=== PATIENT | female | born 1990 | race Caucasian/White ===

== ENCOUNTER 2018-10-01 22:07 | Emergency (ER) | payer SELFPAY ==
[2018-10-02] MEDS ORDERED: DEXAMETHASONE SOD PHOS INJ 10 MG/1 ML VIAL IM ONE (00:05)
[2018-10-02] MEDS ORDERED: DOXYCYCLINE HYCLATE 100 MG TABLET PO ONE (00:06)
--- NOTE | 2018-10-02 00:13 | ER Document Report ---
ED Skin Rash/Insect Bite/Abscs - General Chief Complaint: Skin Sore(s) Stated Complaint: POSSIBLE CELLULITIS Time Seen by Provider: 10/01/18 23:58 Primary Care Provider: BENITA KEVIN [Primary Care Provider] - Follow up as needed Mode of Arrival: Ambulatory Information source: Patient Notes: Patient is a 20-year-old female comes emergency room with a complaint of having cellulitis on her left elbow area. Patient states that she did go side about a week ago when she got bit by some mosquitoes. She went saw her primary doctor yesterday and her primary doctor looked at the area under her left elbow and told her it was nothing. Since then it is developed into an area of moderate erythema with severe pruritus. And is oozing some. She also has an area on her abdomen that is also where she is excoriated the small area because of the pruritus. And she has an area on her right lower extremity. She currently has multiple areas on her lower extremities also appear to have some type of a insect bite like a "mosquito bite. Patient states that all these areas are very itchy. She states she has a history of cellulitis a year ago and almost hospitalized her because it was not treated Fastenal. TRAVEL OUTSIDE OF THE [place] IN LAST 30 DAYS: No - HPI Patient complains to provider of: Skin rash/lesion, Tender/swollen area, Insect bite Onset: Last week Onset/Duration: Gradual, Persistent, Worse Quality of pain: Achy, Burning Severity: Moderate Pain Level: 3 Skin Character: Drainage, Erythema, Papules, Rash, Warm. No: Abscess Skin Temperature: Warm Quality of rash: Itchy Identify cause: No Exacerbated by: Denies Relieved by: Denies Similar symptoms previously: Yes Recently seen / treated by doctor: Yes - Related Data Allergies/Adverse Reactions: Sulfa (Sulfonamide Antibiotics) Allergy (Verified 10/06/11 13:29) Past Medical History - General Information source: Patient - Social History Smoking Status: Never Smoker Cigarette use (# per day): No Chew tobacco use (# tins/day): No Smoking Education Provided: No Frequency of alcohol use: None Drug Abuse: None Lives with: Family Family History: Reviewed & Not Pertinent - Immunizations Hx Diphtheria, Pertussis, Tetanus Vaccination: Yes Review of Systems - Review of Systems Constitutional: No symptoms reported EENT: No symptoms reported Cardiovascular: No symptoms reported Respiratory: No symptoms reported Gastrointestinal: No symptoms reported Genitourinary: No symptoms reported Female Genitourinary: No symptoms reported Musculoskeletal: No symptoms reported Skin: See HPI, Rash Hematologic/Lymphatic: No symptoms reported Neurological/Psychological: No symptoms reported -: Yes All other systems reviewed and negative Physical Exam - Vital signs Vitals: Temp Pulse Resp BP Pulse Ox 98.7 F 77 18 134/79 H 100 10/01/18 22:24 10/01/18 22:24 10/01/18 22:24 10/01/18 22:24 10/01/18 22:24 Interpretation: Hypertensive - Notes Notes: PHYSICAL EXAMINATION: GENERAL: well-nourished and in no acute distress. But uncomfortable appearing. HEAD: Atraumatic, normocephalic. LUNGS: Breath sounds clear to auscultation bilaterally and equal. No wheezes rales or rhonchi. HEART: Regular rate and rhythm without murmurs ABDOMEN: Soft, nontender, nondistended abdomen. No guarding, no rebound. No masses appreciated. Female : deferred Musculoskeletal: Normal range of motion, no pitting or edema. No cyanosis. NEUROLOGICAL: Normal speech, normal gait. Normal sensory, motor exams PSYCH: Normal mood, normal affect. SKIN: Examination patient's her primary concern is her left elbow area. There appears to be about a 4 cm erythematous area that in the center that is approximately a 1-1/2 cm in circumference area of multiple papules that are pustules with clear fluid and on. It appears almost like a poison tamera presentation. Surrounding it is the base of erythema and surrounding that is areas of excoriation where patient has scratched at the area. She has an area also noted on the right abdominal area because of her body habitus cyst in size it is on the right side of the abdomen. It is approximately 5 cm to 6 cm long and about 3 to 4 cm wide it is different stages of excoriation and abrasions secondary to the nails. Is got a base of erythema that is noted in appears to be turning into a cellulitis as well. The lower extremities have multiple what appear to be bug bites or stings on them that also she is excoriated and it starting in various forms and shapes of a early cellulitis in multiple locations on the lower extremities. All of them are quite small however. Course - Re-evaluation Re-evalutation: 10/02/18 00:[address] patient on doxycycline and given her dose here along with hitting her with Decadron in order to kick off a decline in her a response of what ever the dermatitis is. I have informed patient that if she thinks she is scratching herself at night she needs to place gloves on her hands or socks on her hands. Informed her to return to ER if she has any concerns or problems. - Vital Signs Vital signs: Temp Pulse Resp BP Pulse Ox 98.7 F 77 18 134/79 H 100 10/01/18 22:24 10/01/18 22:24 10/01/18 22:24 10/01/18 22:24 10/01/18 22:24 Discharge - Discharge Clinical Impression: Cellulitis of left elbow, Abdominal wall cellulitis Condition: Stable Disposition: HOME, SELF-CARE Instructions: Cellulitis ([facility]), MRSA Cellulitis ([facility]), Contact Dermatitis ([facility]), Atopic Dermatitis (Eczema) ([facility]) Additional Instructions: Home and rest. Take all the antibiotics as prescribed. Wrap the area on the elbow as we have also discussed. Highly recommend that you figure out what may have caused the start of this. May be a talk to your primary doctor after taking some of the antibiotics we can see what area looks like. Also you may take 50 mg of Benadryl [id number] this will help alleviate your itching as well. Please note this can make you sleepy so do not take the medication and drive. Prescriptions: Doxycycline Hyclate 100 mg PO BID 10 Days #20 capsule Forms: Elevated Blood Pressure Referrals: LOCALMD,NO [Primary Care Provider] - Follow up as needed
[2018-10-02 00:46] VITALS: BP 131/75
== END 2018-10-02 00:45 | disposition home or self-care (01) ==
LOC: ER 22:07
DX: L03.113 Cellulitis of right upper limb (principal); L03.311 Cellulitis of abdominal wall; Z88.2 Allergy status to sulfonamides
CPT/HCPCS: 99281; 96372; J1100

== ENCOUNTER 2020-02-05 16:58 | Emergency (ER) | payer OTHER ==
[2020-02-05 17:04] VITALS: BP 145/84
--- NOTE | 2020-02-05 17:08 | ER Document Report ---
HPI - HPI Patient complains to provider of: Ant bites Time Seen by Provider: 02/05/20 17:02 Onset: Yesterday Onset/Duration: Gradual Quality of pain: Burning Pain Level: 3 Context: Patient states she was bit by ants last night. Patient states she woke up today and noticed that she had some redness surrounding the bites to her right great toe. No fever. Patient is presently taking Keflex already to treat a cellulitis. Patient states she only has a few more days left. Associated Symptoms: denies: Fever, Nausea Exacerbated by: Denies Relieved by: Denies Similar symptoms previously: Yes Recently seen / treated by doctor: Yes - ROS ROS below otherwise negative: Yes Systems Reviewed and Negative: Yes All other systems reviewed and negative - CONSTITUTIONAL Constitutional: DENIES: Fever, Chills - REPRODUCTIVE Reproductive: DENIES: : - MUSCULOSKELETAL Musculoskeletal: REPORTS: Extremity pain, Swelling - DERM Skin Color: Erythema Notes: Ant bites Past Medical History - General Information source: Patient - Social History Smoking Status: Never Smoker Frequency of alcohol use: None Drug Abuse: None Occupation: None Lives with: Family Family History: Reviewed & Not Pertinent - Medical History Medical History: Negative Renal/ Medical History: Denies: Hx Peritoneal Dialysis Surgical Hx: Negative - Immunizations Hx Diphtheria, Pertussis, Tetanus Vaccination: Yes Vertical Provider Document - CONSTITUTIONAL Agree With Documented VS: Yes Exam Limitations: No Limitations General Appearance: WD/WN, No Apparent Distress - INFECTION CONTROL TRAVEL OUTSIDE OF THE [place] IN LAST 30 DAYS: No - HEENT HEENT: Atraumatic, Normocephalic - NECK Neck: Normal Inspection, Supple - RESPIRATORY Respiratory: Breath Sounds Normal, No Respiratory Distress - CARDIOVASCULAR Cardiovascular: Regular Rate, Regular Rhythm - MUSCULOSKELETAL/EXTREMETIES Musculoskeletal/Extremeties: MAEW, Edema - 1+ edema to right foot - NEURO Level of Consciousness: Awake, Alert, Appropriate Motor/Sensory: No Motor Deficit - DERM Integumentary: Warm, Dry Notes: Scattered papular, pustular lesions to dorsal aspect of right foot, lesion to right great toe with surrounding erythema to skin Course - Re-evaluation Re-evalutation: 02/05/20 17:11 Patient with insect bites consistent with history of ant bite, mild erythema surrounding ant bite to the right great toe, discussed with patient likely reactive inflammatory response although patient is concerned about developing cellulitis, will place patient on a few additional days worth of the cephalexin. No concern for septic arthritis. - Vital Signs Vital signs: Temp Pulse Resp BP Pulse Ox 98.4 F 93 20 145/84 H 97 02/05/20 17:02 02/05/20 17:02 02/05/20 17:02 02/05/20 17:02 02/05/20 17:02 Discharge - Discharge Clinical Impression: Fire ant bite Qualifiers: Encounter type: initial encounter Injury intent: undetermined intent Qualified Code(s): T63.424A - Toxic effect of venom of ants, undetermined, initial encounter Cellulitis Qualifiers: Site of cellulitis: extremity Site of cellulitis of extremity: lower extremity Laterality: right Qualified Code(s): L03.115 - Cellulitis of right lower limb Condition: Stable Disposition: HOME, SELF-CARE Instructions: Cephalexin ([facility]), Swollen Insect Bite or Sting ([facility]) Additional Instructions: Return immediately for any new or worsening symptoms Followup with your primary care provider, call tomorrow to make a followup appointment Prescriptions: Cephalexin Monohydrate [Keflex 500 mg Capsule] 500 mg PO Q6H 3 Days #12 capsule Referrals: LOCALMD,NO [Primary Care Provider] - Follow up as needed
== END 2020-02-05 17:16 | disposition home or self-care (01) ==
LOC: ER 16:58
DX: T63.421A Toxic effect of venom of ants, accidental (unintentional), initial encounter (principal); L03.115 Cellulitis of right lower limb; X58.XXXA Exposure to other specified factors, initial encounter
CPT/HCPCS: 99283

== ENCOUNTER 2020-03-30 15:39 | Emergency (ER) | payer OTHER ==
--- NOTE | 2020-03-30 16:28 | ER Document Report ---
ED Medical Screen (RME) - General Chief Complaint: Flank Pain Stated Complaint: PAINFUL URINATION,LEFT FLANK PAIN Time Seen by Provider: 03/30/20 16:23 Primary Care Provider: YG ANDERSON IDC [Primary Care Provider] - Follow up as needed Mode of Arrival: Ambulatory Information source: Patient Notes: 29-year-old female presents to ED for complaint of left flank pain pelvic pain. She states she has been having this since March 08 she has been to the medical over at [facility] and they have given her different medications and had her do urines 3 different times and the pain is just getting worse and not getting any better. She states that now she has pain up into her left flank area. She denies any fevers nausea or vomiting. We will get clean and dirty urine blood test and a wet mount and she will be seen by another provider. Patient does have tenderness to her pelvic and her left flank. We will also get a transvaginal ultrasound I have greeted and performed a rapid initial assessment of this patient. A comprehensive ED assessment and evaluation of the patient, analysis of test results and completion of medical decision making process will be conducted by an additional ED providers. TRAVEL OUTSIDE OF THE [place] IN LAST 30 DAYS: No - Related Data Allergies/Adverse Reactions: Sulfa (Sulfonamide Antibiotics) Allergy (Verified 10/06/11 13:29) Past Medical History Renal/ Medical History: Denies: Hx Peritoneal Dialysis - Immunizations Hx Diphtheria, Pertussis, Tetanus Vaccination: Yes Physical Exam - Vital signs Vitals: Temp Pulse Resp BP Pulse Ox 98.2 F 88 16 151/90 H 100 03/30/20 15:47 03/30/20 15:47 03/30/20 15:47 03/30/20 15:47 03/30/20 15:47 Course - Vital Signs Vital signs: Temp Pulse Resp BP Pulse Ox 98.2 F 88 16 151/90 H 100 03/30/20 15:47 03/30/20 15:47 03/30/20 15:47 03/30/20 15:47 03/30/20 15:47 Doctor's Discharge - Discharge Referrals: YG ANDERSON IDC [Primary Care Provider] - Follow up as needed
--- NOTE | 2020-03-30 17:27 | RADIOLOGY REPORT (SQ) ---
EXAM DESCRIPTION: U/S NON-OB PELVIS TV W/O DOP IMAGES COMPLETED DATE/TIME: 03/30/2020 5:14 pm REASON FOR STUDY: Pelvic pain COMPARISON: None. TECHNIQUE: Dynamic and static grayscale images acquired of the pelvis via transvaginal approach and recorded on PACS. Additional selected color Doppler and spectral images recorded. LIMITATIONS: None. FINDINGS: UTERUS: Contour normal. No mass. ENDOMETRIAL STRIPE: No focal or generalized thickening. No masses. CERVIX: 2.4 cm. No nabothian cysts. RIGHT OVARY AND DOPPLER: Normal size. No worrisome masses. Normal arterial vascular flow without evid ence for torsion. LEFT OVARY AND DOPPLER: Normal size. No worrisome masses. Normal arterial vascular flow without evide nce for torsion. FREE FLUID: None noted. OTHER: No other significant finding. MEASUREMENTS: UTERUS: 7.4 x 5.1 x 4.3 cm. ENDOMETRIAL STRIPE: 6 mm. RIGHT OVARY: 3.2 x 1.7 x 2.2 cm. LEFT OVARY: 2.6 x 2 x 1.4 cm. IMPRESSION: NORMAL TRANSVAGINAL PELVIC ULTRASOUND. TECHNICAL DOCUMENTATION: JOB ID: [id number] [employer]- All Rights Reserved Rev-10/09 Reading location - IP/workstation name: [email or web address]
[2020-03-30 17:32] LABS: ABSOLUTE LYMPHOCYTES (AUTO) 2.2 10^3/uL (0.5-4.7); ABSOLUTE MONOCYTES (AUTO) 0.6 10^3/uL (0.1-1.4); ABSOLUTE NEUT (AUTO) 8.2 10^3/uL (1.7-8.2); BASOPHILS % (AUTO) 0.1 % (0-2); EOSINOPHILS % (AUTO) 0.4 % (0-6); HEMATOCRIT 39.3 % (36.0-47.0); HEMOGLOBIN 13.5 g/dL (12.0-15.5); LYMPHOCYTES % (AUTO) 19.9 % (13-45); MEAN CORPUSCULAR HEMOGLOBIN 29.6 pg (27.0-33.4); MEAN CORPUSCULAR HGB CONC 34.3 g/dL (32.0-36.0); MEAN CORPUSCULAR VOLUME 86 fl (80-97); MONOCYTES % (AUTO) 5.4 % (3-13); PLATELET COUNT 237 10^3/uL (150-450); RED BLOOD COUNT 4.56 10^6/uL (3.72-5.28); RED CELL DISTRIBUTION WIDTH 13.5 % (11.5-14.0); SEGMENTED NEUTROPHILS % (AUTO) 74.2 % (42-78); TOTAL CELLS COUNTED % (AUTO) 100 %
[2020-03-30 17:38] LABS: APPEARANCE,URINE CLEAR; BILIRUBIN,URINE NEGATIVE (NEGATIVE); COLOR,URINE STRAW; GLUCOSE, URINE NEGATIVE (NEGATIVE); KETONES,URINE NEGATIVE (NEGATIVE); LEUKOCYTE ESTERASE,URINE NEGATIVE (NEGATIVE); NITRITE,URINE NEGATIVE (NEGATIVE); PROTEIN,URINE NEGATIVE (NEGATIVE); UROBILINOGEN,URINE NEGATIVE mg/dL (<2.0)
[2020-03-30 18:02] LABS: ALBUMIN 4.7 g/dL (3.5-5.0); ALKALINE PHOSPHATASE 95 U/L (38-126); ANION GAP 11 (5-19); ASPARTATE AMINO TRANSFERASE 31 U/L (14-36); BILIRUBIN,TOTAL 0.3 mg/dL (0.2-1.3); BLOOD UREA NITROGEN 15 mg/dL (7-20); CALCIUM 9.7 mg/dL (8.4-10.2); CARBON DIOXIDE 27 mmol/L (22-30); CHLORIDE 99 mmol/L (98-107); GLUCOSE 93 mg/dL (75-110); POTASSIUM 4.1 mmol/L (3.6-5.0); TOTAL PROTEIN 7.6 g/dL (6.3-8.2)
[2020-03-30 19:59] LABS: BACTERIA (WET MOUNT) 3+ BACTERIA SEEN; RBCS (WET MOUNT) 4+ RBCS SEEN; T.VAGINALIS (WET MOUNT) NO TRICHOMONAS SEEN; WBCS (WET MOUNT) 1+ WBCS SEEN; YEAST (WET MOUNT) NO YEAST SEEN
[2020-03-30 20:08] LABS: CHLAM PCR NOT DETECTED (NOT DETECT)
[2020-03-30 20:26] VITALS: BP 137/78
--- NOTE | 2020-03-30 21:00 | RADIOLOGY REPORT (SQ) ---
EXAM DESCRIPTION: CT ABDOMEN PELVIS WITHOUT IV CONTRAST COMPLETED DATE/TME: 03/30/2020 20:19 CLINICAL HISTORY: 29 years, Female, . Left flank pain. COMPARISON: Pelvic ultrasound from today. TECHNIQUE: Axial images without IV or oral contrast. Sagittal coronal reconstruction. Images stored on PACS. All CT scanners at this facility use dose modulation, iterative reconstruction, and/or weight based dosing when appropriate to reduce radiation dose to as low as reasonably achievable (ALARA). FINDINGS: Lung bases are unremarkable. Small hiatal hernia. 15 x 12 mm cyst in the dome of the liver. Spleen, pancreas, biliary system, adrenal glands, kidneys, aorta and para-aortic regions are unremarkable. Small umbilical hernia with herniation of fat. Bowel loops and peritoneal cavity are unremarkable. CT of the pelvis demonstrates a retroverted retroflexed uterus. Adnexa not enlarged. No adenopathy or free fluid. Urinary bladder unremarkable. Distal colon is unremarkable. IMPRESSION: 1. Small umbilical hernia with herniation of fat. Small hiatal hernia. 2. Retroverted retroflexed uterus. 3. No acute findings in the abdomen and pelvis.
--- NOTE | 2020-03-30 21:14 | ER Document Report ---
ED General - General Chief Complaint: Flank Pain Stated Complaint: PAINFUL URINATION,LEFT FLANK PAIN Time Seen by Provider: 03/30/20 16:23 Primary Care Provider: YG ANDERSON IDC [Primary Care Provider] - Follow up in 3-5 days ROSSANA MARIA MD [NO LOCAL MD] - Follow up in 1 week Mode of Arrival: Ambulatory TRAVEL OUTSIDE OF THE [place] IN LAST 30 DAYS: No - HPI Notes: 29-year-old female to the emergency department with complaints of about 1 month of sensation that she has to urinate all the time. She states that her primary care doctor at the [facility] has put her on 4 different antibiotics. She has most recently been on Keflex with Pyridium. She states that she continues to feel the same sensation of feeling like she always needs to go the bathroom. She states that when she urinates she does not feel like she is completely voided. She also states she started to have a little bit of left flank pain. Denies any history of kidney stones. Denies any nausea or vomiting. She denies any fevers or chills. She states her primary care will start to send her to a urologist. - Related Data Allergies/Adverse Reactions: Sulfa (Sulfonamide Antibiotics) Allergy (Verified 10/06/11 13:29) Past Medical History - General Information source: Patient - Social History Smoking Status: Never Smoker Frequency of alcohol use: Occasional Family History: Reviewed & Not Pertinent Renal/ Medical History: Denies: Hx Peritoneal Dialysis - Immunizations Hx Diphtheria, Pertussis, Tetanus Vaccination: Yes Review of Systems - Review of Systems Constitutional: denies: Chills, Fever EENT: No symptoms reported Cardiovascular: denies: Chest pain, Palpitations, Heart racing, Dizziness, Lightheaded Respiratory: denies: Cough, Short of breath Gastrointestinal: denies: Diarrhea, Nausea, Vomiting Genitourinary: Dysuria, Frequency, Flank pain Female Genitourinary: denies: Vaginal discharge, Vaginal bleeding Musculoskeletal: No symptoms reported Skin: No symptoms reported Hematologic/Lymphatic: No symptoms reported Neurological/Psychological: No symptoms reported -: Yes All other systems reviewed and negative Physical Exam - Vital signs Vitals: Temp Pulse Resp BP Pulse Ox 98.2 F 88 16 151/90 H 100 03/30/20 15:47 03/30/20 15:47 03/30/20 15:47 03/30/20 15:47 03/30/20 15:47 Interpretation: Normal - General General appearance: Appears well, Alert In distress: None - HEENT Head: Normocephalic, Atraumatic Eyes: Normal Pupils: PERRL Neck: Normal, Supple - Respiratory Respiratory status: No respiratory distress Chest status: Nontender Breath sounds: Normal. No: Rales, Rhonchi, Wheezing Chest palpation: Normal - Cardiovascular Rhythm: Regular Heart sounds: Normal auscultation Murmur: No - Abdominal Inspection: Obese Distension: No distension Bowel sounds: Normal Tenderness: Nontender. 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 Ct reassuring. Labs are also reassuring. UA not convincing for UTI. Will send urine culture. suspect possible OAB. Will start on ditropan and see if that helps patient's symptoms. Encouraged follow up with urologist. - Vital Signs Vital signs: Temp Pulse Resp BP Pulse Ox 98.1 F 86 17 137/78 H 98 03/30/20 20:25 03/30/20 20:25 03/30/20 20:25 03/30/20 20:25 03/30/20 20:25 - Laboratory Result Diagrams: 03/30/20 16:31 03/30/20 16:31 Laboratory results interpreted by me: 03/30/20 03/30/20 03/30/20 16:31 16:31 16:40 WBC 11.0 H ALT 38 H Urine Blood MODERATE H - Diagnostic Test Radiology reviewed: Image reviewed, Reports reviewed Discharge - Discharge Clinical Impression: Left flank pain, Urinary frequency Condition: Stable Disposition: HOME, SELF-CARE Additional Instructions: Today in the emergency department you had reassuring lab work as well as a transvaginal ultrasound and CT of the abdomen. You do not have kidney stones. Your urine does not look like it has an infection. Please follow-up at [facility] and get your referral to urology. Take medicines as prescribed. Prescriptions: Oxybutynin Chloride [Ditropan 5 Mg Tablet] 5 mg PO BID #12 tablet Referrals: YG ANDERSON IDC [Primary Care Provider] - Follow up in 3-5 days ROSSANA MARIA MD [NO LOCAL MD] - Follow up in 1 week
== END 2020-03-30 21:43 | disposition home or self-care (01) ==
LOC: ER 15:39
DX: R35.0 Frequency of micturition (principal); R10.9 Unspecified abdominal pain; R30.0 Dysuria; K42.9 Umbilical hernia without obstruction or gangrene; K44.9 Diaphragmatic hernia without obstruction or gangrene; N85.4 Malposition of uterus; Z88.2 Allergy status to sulfonamides
CPT/HCPCS: 36415; 74176; 76830; 80053; 81001; 81025; 85025; 87086; 87210; 87491; 87591; 99285